=== PATIENT | male | born 2000 | race Caucasian/White ===

== ENCOUNTER 2024-02-24 06:08 | Day surgery (SDC) | payer BC ==
[~2024-02-24] VITALS: Ht 188 cm; Wt 106.1 kg
[2024-02-24] VITALS (14 sets, daily range): BP systolic 112–151; BP diastolic 66–94
[~2024-02-24 06:08] MED LIST: MULVITA PO
[2024-02-24] MEDS ORDERED: CeFAZolin Sodium 2,000 MG in NS 100 ML IV SCH (06:25)
[2024-02-24] MEDS ORDERED: Lactated Ringer's 1,000 ML IV SCH (06:25)
[2024-02-24] MEDS ORDERED: Ondansetron HCl 2 MG / ML 2ML Vial ONE (06:41)
[2024-02-24] MEDS ORDERED: Dexamethasone Sod Phos 10 MG/ML 1ML VIAL ONE (06:41)
[2024-02-24] MEDS ORDERED: Ketorolac Tromethamine 30mg Vial ONE (06:41)
[2024-02-24] MEDS ORDERED: Metoclopramide HCl 5MG / ML 2ML Vial ONE (06:41)
[2024-02-24] MEDS ORDERED: Rocuronium Bromide 10 MG/ML 5ML Injection IV ONE (06:41)
[2024-02-24] MEDS ORDERED: Sugammadex Sodium 200 MG/2ML SDV (100 MG/ML) ONE (06:42)
[2024-02-24] MEDS ORDERED: HYDROmorphone HCl/Pf 1MG SYR ONE (06:42)
[2024-02-24] MEDS ORDERED: Ketamine HCl 100 MG / ML 5ML Vial ONE (06:42)
[2024-02-24] MEDS ORDERED: propofoL 40 ML IV ONE (06:42)
[2024-02-24] MEDS ORDERED: CeFAZolin Sodium 2,000 MG VIAL ONE (06:45)
--- NOTE | 2024-02-24 06:53 | NUR ---
History, Chart, Medications and Allergies reviewed before start of procedure. Patient confirms NPO status and agrees with scheduled surgery.
[2024-02-24] MEDS ORDERED: Bupivacaine 0.5% HCl 5 MG/ML 30MLVIAL ONE (07:06)
[2024-02-24] MEDS ORDERED: propofoL 50 ML IV ONE (07:14)
[2024-02-24] MEDS ORDERED: Lidocaine HCl 4% 5 ML SDA ONE (07:14)
[2024-02-24] MEDS ORDERED: Acetaminophen 500 MG Tab ONE (07:18)
[2024-02-24] MEDS ORDERED: FentaNYL Citrate 50 MCG/ML 2 ML Injection ONE (07:47)
[2024-02-24] MEDS ORDERED: Naloxone HCl 0.4MG / ML 1ML Vial ONE (09:13)
[2024-02-24] MEDS ORDERED: OxyCODONE 5 mg/Acetamin 325 mg TABLET PO PRN (09:30)
--- NOTE | 2024-02-24 10:04 | NUR ---
PT TO DAY SURGERY STEP DOWN FROM PACU WITH INGUINAL HERNIA REPAIR; BEDSIDE REPORT RECEIVED. PT IS AWAKE, ALERT AND ORIENTED; ABLE TO MOVE SELF IN BED. PT HAS 3 ABD INCISIONS THAT ARE CLOSED WITH EXOFIN AND ARE C/D/I. PT DENIES PAIN. NO COMPLAINTS.
--- NOTE | 2024-02-24 10:20 | NUR ---
PT TOLERATING PO FLUIDS WELL. INCISIONS REMAIN C/D/I. ICE PACK TO ABD
--- NOTE | 2024-02-24 10:43 | NUR ---
Discharge instructions reviewed with patient. Patient verbalizes understanding. Copy given to patient to take home. Patient States Post-Procedure ride home has been arranged.
--- NOTE | 2024-02-24 10:46 | NUR ---
PT EATING CRACKERS. STATES HIS HEAD STILL FEELS DIZZY/FUZZY
--- NOTE | 2024-02-24 10:55 | NUR ---
PT HEAD FEELING LESS DIZY; ON PHONE WITH HIS .
== END 2024-02-24 11:52 | disposition home or self-care (01) ==
LOC: ORSCMMR 06:08 → ORD 07:30 → ORSCMMR 11:52
DX: K40.30 Unilateral inguinal hernia, with obstruction, without gangrene, not specified as recurrent (principal); K41.30 Unilateral femoral hernia, with obstruction, without gangrene, not specified as recurrent; K45.0 Other specified abdominal hernia with obstruction, without gangrene; K66.0 Peritoneal adhesions (postprocedural) (postinfection)
CPT/HCPCS: A9270; C1781; J0690; J1100; J1171; J1885; J2003; J2310; J2405; J2704; J2765; J3010; J7120